=== PATIENT | female | born 1995 | race Two or more races ===

== ENCOUNTER 2017-03-30 06:14 | Emergency (ER) | payer OTHER ==
[~2017-03-30] VITALS: Ht 154.9 cm; Wt 54.0 kg
[2017-03-30 06:17] VITALS: BP 96/65; RESP 16; O2SAT 98
--- NOTE | 2017-03-30 06:19 | ED.REPORT ---
HPI-General Illness Date of Service March 30, 2017 ED Provider: Jono Kelly DO A healthy 21 year old female presents to the ER accompanied by her mother complaining of bilateral ear pain onset midnight last night. She states that she was diagnosed with strep four days ago and started on antibiotics. Symptoms have been treated with ibuprofen without relief. Patient denies history of ear infection, fever, and vomiting. She went swimming last week. Last normal menstrual period was a month ago. Nursing Notes Stated Complaint: EAR PAIN Chief Complaint: ENT & Mouth Nursing Notes Reviewed: Yes Allergies: Coded Allergies: No Known Allergies (Unverified , 03/30/17) Scheduled Azithromycin (Zithromax (Z-Robbie)) 250 Mg Tablet 250 MG PO DAILY Take two tablets by mouth on day 1, then take one tablet daily on days 2 through 5. General Time Seen by MD: 06:20 Chief Complaint Ear pain Hx Obtained From: Patient Arrived By: Walk-in Sudden in Onset?: No Onset Occurred: 5 - 8 hours ago Symptom Duration: Since onset Location: : Ear left: Ear right Quality: Painful Severity: Current: Moderate Severity: Maximum: Moderate Pertinent Negative: Pt denies other symptoms Recent Healthcare: Recent doctor visit Similar Sx Previous: No Past Medical History Past Medical History Healthy Smoking History Unknown if Ever Smoker Social History Other Social History: Good social support Ambulatory Status Independent Review of Systems Full Review of Systems Constitutional: Denies: Chills, Fever Ears / Nose / Throat: Reports: Earache bilateral, Sore throat Respiratory: Reports: Non-productive cough GI: Denies: Abdominal pain, Diarrhea, Nausea, Vomiting Complete sys rev & neg: except as marked. Physical Exam Vital Signs Vital Signs Date Time Temp Pulse Resp B/P Pulse Ox O2 Delivery O2 Flow Rate FiO2 03/30/17 07:00 36.6 63 17 100/70 99 Room Air 03/30/17 06:17 36.4 64 16 96/65 98 Room Air Initial VS: Reviewed General/Constitutional: Well-developed, Well-nourished Head / Eyes: Atraumatic, Normocephalic Neck: Supple, Non-tender, Full range of motion Abdomen / GI: Soft, Non-tender, No guarding, No rebound, No distention Extremities: Vascular intact, Neuro intact, No swelling, No tenderness Skin: Warm, Dry, No cyanosis Neurologic: Alert, Oriented, Nonfocal Psychiatric: Mood/affect normal, Behavior normal, Normal thought content ENT: Airway patent, Mucous membranes moist Right Ear / Mastoid: Positive: Tympanic membrane bulging, Tympanic membrane red No pain with movement of ear or tragus. Re-Eval/Medical Decision Med Decision/Clinical Course Concerning for otitis media, will give azithromycin. Return and follow-up precautions given Time of Eval: 06:35 Re-Evaluation/Progress Note: Discussed physical examination findings and plan to discharge. Patient is amenable to the plan. Return precautions given. All other questions addressed. Counseled Regarding: Diagnosis, Need for follow-up, When/why to return to ED Discharge & Departure Primary Impression: Otitis media Disposition: Home Discharge Condition All VS Reviewed: Yes Condition: Stable Patient Instructions: Otitis Media (ED) Additional Instructions: Continue taking the penicillin you were prescribed. Start taking azithromycin. It is important that you complete the entire course of this antibiotic medication. Use ibuprofen or Tylenol as directed for pain. Follow-up with your primary care doctor in 1-2 days. Return to the ER if you develop new or worsening pain, fever, chills, vomiting, diarrhea. Referrals: Betsy Benítez MD (PCP) Scribe Attestation Portions of this note were transcribed by Larry Hernandez. I, Dr. Kelly, personally performed the history, physical exam and medical decision-making; I reviewed and confirmed the accuracy of the information in the transcribed note. Signed by: Ruiz Lebron, 03/30/2017 and 06:45 copies to: Betsy Benítez MD, Timothy S DO March 30, 2017 06:19 LARRY HERNANDEZ March 30, 2017 06:36
[2017-03-30] MEDS ORDERED: AZIT250T4 PO (06:42)
[2017-03-30 07:00] VITALS: BP 100/70; PULSE 63; RESP 17; O2SAT 99
== END 2017-03-30 07:01 | disposition home or self-care (01) ==
LOC: SED 06:14
DX: H66.91 Otitis media, unspecified, right ear (principal)